=== PATIENT | female | born 1980 | race American Indian/Alaskan Native ===

== ENCOUNTER 2016-12-18 13:38 | Observation (INO) | payer OTHER ==
[2016-12-18] MEDS ORDERED: TYLENOL PO PRN (16:04)
[2016-12-18] MEDS ORDERED: BENADRYL PO PRN (16:07)
[2016-12-18] MEDS ORDERED: BENADRYL IV PRN (16:33)
[2016-12-18] MEDS ORDERED: TYLENOL PO STA (19:22)
[2016-12-18] MEDS ORDERED: BENADRYL PO ONE (19:22)
[2016-12-18] MEDS: NACL 0.9% 500 ML 500 ML IV SCH (22:21)
--- NOTE | 2016-12-19 07:38 | Admit Criteria Form ---
Admission Criteria Documentation: OBSTETRIC AND GYNECOLOGIC DISEASE GRG Clinical Indications for Admission to Inpatient Care (Place 'X' for any and all applicable criteria): Hospital admission is needed for appropriate care of the patient because of 1 or more of the following (1)(2)(3): [ ]I. Hemodynamic instability, as indicated by 1 or more of the following (1)( 2)(3)(4)(5): [ ]a) Vital signs or other findings not as expected for chronic patient condition or baseline [ ]b) Instability indicated by 1 or more of the following: [ ]i) Hypotension [ ]ii) Symptomatic tachycardia unresponsive to treatment (eg, analgesia, fluids, sedation as indicated) [ ]iii) Inadequate perfusion indicated by 1 or more of the following: [ ]A. Lactic acidosis (greater than 2 mmol/ L) [ ]B. New abnormal capillary refill ( greater than 3 seconds) [ ]C. Reduced urine output [ ]D. New altered mental status [ ]iv) Orthostatic vital sign changes unresponsive to treatment (eg, fluids) [ ]v) Multiple IV fluid boluses required to maintain adequate blood pressure or perfusion [ ]vi) IV inotropic or vasopressor medication required to maintain adequate blood pressure or perfusion [ ]II. Obstetric infection requiring hospitalization indicated by 1 or more of the following(13)(14): [ ]a) Chorioamnionitis [ ]b) Endometritis (except mild endometritis) [ ]c) Pelvic abscess [ ]d) Peritonitis [ ]e) Septic pelvic thrombophlebitis [ ]III. Amniotic fluid or pulmonary embolism(4)(5)(6) [ ]IV. Suspected peritonitis or ectopic requiring monitoring beyond scope of 24 hours or observation care(7)(8) [ ]V. compromise requiring hospitalization indicated by ALL of the following(9)(10): [ ]a) compromise indicated by 1 or more of the following(11): [ ]i) Abnormal heart rate monitoring [ ]ii) Abnormal contraction stress test [ ]iii) Abnormal biophysical profile [ ]iv) Abnormal Doppler flow in vessels (ie, Doppler velocimetry) (12) [ ]b) Persistence of compromise indicators during evaluation and observation monitoring [ ]. Ovarian hyperstimulation syndrome requiring hospitalization[A] indicated by ALL of the following(15): [ ]a) Recent ovarian stimulation with gonadotropins, or evidence on ultrasound of spontaneous emergence of large number of ovarian follicles [ ]b) Evidence of severe ovarian hyperstimulation syndrome indicated by 1 or more of the following: [ ]i) Abdominal pain unresponsive to oral therapy [ ]ii) Acute respiratory distress syndrome [ ]iii) Electrolyte imbalance ( eg, hyponatremia, hyperkalemia) [ ]iv) Elevated liver enzymes [ ]v) Evidence of thromboembolism [ ]vi) Hemoconcentration (hematocrit greater than 45 % (0.45)) [ ]vii) Inability to maintain oral intake adequate to prevent hemoconcentration [ ]viii) Marked hypotension from baseline (eg, SBP 20 mmHg below patients usual pressure) [ ]ix) Oliguria or anuria [ ]x) Ovarian torsion [ ]xi) Pleural or pericardial effusion on x-ray or echocardiogram [ ]xii) Rapid increase in serum creatinine to greater than 1.2 mg/dL (106 micromoles/L) or creatinine clearance less than 50 mL/min/1.73m2 (0.84 mL/ sec/1.73m2) [ ]xiii) Ruptured ovarian cyst with hemorrhage [ ]xiv) Severe abdominal pain or peritoneal signs [ ]xv) Tense ascites that cannot be managed with paracentesis in outpatient setting [ ]VII.Pelvic infection requiring hospitalization indicated by 1 or more of the following (16): [ ]a) Outpatient treatment has failed or is not appropriate (eg, inpatient monitoring required) [ ]b) Pelvic abscess [ ]c) Surgical emergency cannot be excluded (eg, rigid abdomen) [ ]d) Vomiting precluding outpatient and observation care management VIII. loss complications requiring inpatient medical treatment indicated by 1 or more of the following (4)(7)(9): [ ]a) Fever [ ]b) Peritonitis [ ]c) Sepsis [ ]d) Severe abdominal pain [ ]IX. or patient requiring monitoring for severe heart failure, pulmonary disease, or other comorbid condition (eg, peripartum cardiomyopathy) (4)(17) [ ]X. patient with rupture of membranes requiring hospitalization indicated by ANY ONE of the following: [ ]a) Chorioamnionitis, cloudy amniotic fluid, or other evidence of infection [ ]b) compromise or other need for monitoring (11) [ ]c) Gestation longer than 23 weeks and ANY ONE of the following: [ ]i) Abnormal (noncephalic) presentation [ ]ii) Inadequate home environment (eg, home too far from hospital, unable to rapidly return to hospital) [ ]d) Temperature greater than 100.4 degrees F (38 degrees C)( oral) [ ]e) Threatened labor requiring monitoring beyond scope (eg, over 24 hours) of observation Care [ ] XI. complications, including severe lacerations, infections, or retained placenta (19) [X ] XII.Uterine bleeding with high-risk features indicated by ANY ONE of the following (4): [ ]a) Active major hemorrhage (eg, hemorrhage) [ ]b) Coagulopathy with active bleeding [ ]c) Gestational trophoblastic disease (eg, molar ) (20 ) [ ]d) (longer than 23 weeks) and ANY ONE of the following: [ ]i) Pain [ ]ii) Placental abruption, known or suspected [ ]iii) Placenta accrete, known or suspected(21) [ ]iv) Placenta previa, known or suspected [ ]v) Vasa previa [ X]e) Severe anemia [ ]XIII. Obstetric or Gynecologic Disease, condition or symptom for which ANY ONE of the following: [ ]a) Emergency and observation care have failed or are not considered appropriate ( Also use General Criteria: Observation Care Criteria as appropriate) [ ]b) Presence of a General Admission Criteria or Pediatric General Admission Criteria The original [facility] [employer] content created by [facility] has been revised. The portions of the content which have been revised are identified through the use of italic text or in bold, and [facility] has neither reviewed nor approved the modified material.All other unmodified content is copyright [facility]. Please see references footnoted in the original [facility] edition 2016
[2016-12-19] MEDS: NACL 0.9% 500 ML 500 ML IV SCH (10:10)
[2016-12-19 12:53] VITALS: BP 117/64
== END 2016-12-19 15:43 | disposition home or self-care (01) ==
LOC: UNDOADMIN 13:38 → 3A 13:38 → EDSTATUS 15:05 → 3A 18:53
PROVIDERS: ADMIT Obstetrics & Gynecology Gynecology; ATTEND Obstetrics & Gynecology Gynecology
DX: D50.0 Iron deficiency anemia secondary to blood loss (chronic) (principal); N93.9 Abnormal uterine and vaginal bleeding, unspecified; N92.0 Excessive and frequent menstruation with regular cycle; N94.6 Dysmenorrhea, unspecified; N76.0 Acute vaginitis; Z83.3 Family history of diabetes mellitus
CPT/HCPCS: 36415; 36430; 85014; 85018; 86850; 86900; 86901; 86920; 96360; 96361; G0378; G0379; J7040; P9016

== ENCOUNTER 2016-12-22 10:51 | Observation (INO) | payer OTHER ==
[2016-12-17 12:48] LABS: Bilirubin,Urine NEG (Negative); Blood,Urine NEG (Negative); Ketones,Urine NEG (Negative); Leukocyte Esterase,Urine NEG (Negative); Mucus,Urine FEW /HPF; Nitrite,Urine NEG (Negative); Protein,Urine <15 mg/dL mg/dL (Negative); Urobilinogen,Urine < 2.0 mg/dL (<2.0); WBC,Urine < 1.0 /HPF (0.0-6.0)
[2016-12-17 12:58] LABS: Basophils % (Auto) 1.3 % (0.0-1.8); Eosinophils % (Auto) 1.3 % (0.0-4.3); Hematocrit 23.4 % (30.3-42.9); Hemoglobin 6.8 gm/dl (10.1-14.3); Mean Corpuscular HGB Conc 29 % (30-34); Platelet Count 300 K/mm3 (140-440); Red Blood Count 3.44 M/mm3 (3.65-5.03); White Blood Count 7.3 K/mm3 (4.5-11.0)
[2016-12-17 12:59] LABS: Mean Corpuscular Volume 68 fl (79-97)
[2016-12-17 13:00] LABS: Mean Corpuscular Hemoglobin 20 pg (28-32); Red Cell Distribution Width 22.8 % (13.2-15.2)
[2016-12-17 14:46] LABS: Alanine Aminotransferase 12 units/L (7-56); Albumin 3.7 g/dL (3.9-5); Albumin/Globulin Ratio 1.2 %; Alkaline Phosphatase 46 units/L (35-129); Anion Gap 16 mmol/L; Blood Urea Nitrogen 7 mg/dL (7-17); Calcium 8.8 mg/dL (8.4-10.2); Carbon Dioxide 25 mmol/L (22-30); Chloride 103.1 mmol/L (98-107); Glucose 81 mg/dL (65-100); Potassium 4.1 mmol/L (3.6-5.0); Sodium 140 mmol/L (137-145); Total Protein 6.7 g/dL (6.3-8.2)
[2016-12-22] MEDS ORDERED: SUBLIMAZE IV ONE (11:38)
--- NOTE | 2016-12-22 11:38 | Anesthesia Day of Surgery ---
Anesthesia Day of Surgery - Day of Surgery Patient Examined: Yes Patient H&P Reviewed: Yes Patient is NPO: Yes
--- NOTE | 2016-12-22 11:38 | Anesthesia Consultation ---
Anesthesia Consult and Med Hx Date of service: 12/22/16 - Airway Anesthetic Teeth Evaluation: Good ROM Head & Neck: Adequate Mental/Hyoid Distance: Adequate Mallampati Class: Class I Intubation Access Assessment: Good - Pulmonary Exam CTA: Yes - Cardiac Exam Cardiac Exam: RRR - Pre-Operative Health Status ASA Pre-Surgery Classification: ASA2 Proposed Anesthetic Plan: General - Pulmonary Hx Smoking: Yes (occas) - Central Nervous System Hx Psychiatric Problems: No - Hematic Hx Anemia: Yes - Other Systems Hx Alcohol Use: Yes (daily Mimosa) Hx Cancer: No
[2016-12-22] MEDS ORDERED: NEURONTIN PO NR (12:00)
[2016-12-22] MEDS ORDERED: VERSED IV NR (12:00)
[2016-12-22] MEDS ORDERED: NACL 0.9% 1000 ML 1,000 ML IV SCH (12:00)
[2016-12-22] MEDS ORDERED: PEPCID PO NR (12:00)
[2016-12-22] MEDS ORDERED: DECADRON ONE ×2 (12:20→12:37)
[2016-12-22] MEDS ORDERED: MARCAINE-EPI/PF 0.25%-1:200,000 INFILTRATI ONE ×2 (12:20→12:25)
[2016-12-22] MEDS ORDERED: NEOSPORIN GU IR ONE ×2 (12:25→14:39)
[2016-12-22] MEDS ORDERED: NACL 0.9% 0 ML ONE (12:25)
[2016-12-22] MEDS ORDERED: Vasostrict ONE (12:26)
[2016-12-22 12:29] LABS: Basophils % (Auto) 1.2 % (0.0-1.8); Eosinophils % (Auto) 1.4 % (0.0-4.3); Mean Corpuscular HGB Conc 30 % (30-34); Mean Corpuscular Volume 72 fl (79-97); Platelet Count 325 K/mm3 (140-440); Red Blood Count 4.88 M/mm3 (3.65-5.03); White Blood Count 8.7 K/mm3 (4.5-11.0)
[2016-12-22 12:34] LABS: Hemoglobin 10.6 gm/dl (10.1-14.3); Mean Corpuscular Hemoglobin 22 pg (28-32)
[2016-12-22] MEDS ORDERED: DIPRIVAN 10 MG/ML IV ONE (12:37)
[2016-12-22] MEDS ORDERED: DILAUDID ONE (12:37)
[2016-12-22] MEDS ORDERED: XYLOCAINE MPF 2% ONE (12:37)
[2016-12-22] MEDS ORDERED: ZEMURON IV ONE (12:37)
[2016-12-22] MEDS ORDERED: ZOFRAN ONE (12:37)
[2016-12-22] MEDS ORDERED: ANCEF/STERILE WATER 2 GM/20 ML IV NR (12:57)
[2016-12-22] MEDS ORDERED: ACD-A 500 ML IV ONE (13:17)
[2016-12-22] MEDS ORDERED: THROMBIN (BOVINE) TP ONE ×2 (13:18→16:41)
[2016-12-22] MEDS ORDERED: CALCIUM CHLORIDE IV ONE ×2 (13:20→16:41)
[2016-12-22] MEDS ORDERED: NACL P/F VIAL (10 ML) 10 ML ONE ×2 (13:34)
[2016-12-22] MEDS ORDERED: FLAGYL 500 MG/100 ML 500 MG/100 ML BAG IV ONE (14:02)
[2016-12-22] MEDS ORDERED: Vasostrict IM ONE (14:40)
[2016-12-22] MEDS ORDERED: NACL 0.9% IR ONE (14:40)
[2016-12-22] MEDS ORDERED: NACL P/F VIAL (10 ML) INFILTRATI ONE (14:41)
[2016-12-22] MEDS ORDERED: ACD-A IV ONE (16:41)
[2016-12-22] MEDS ORDERED: ANCEF ONE (18:45)
--- NOTE | 2016-12-22 18:52 | Short Stay Summary ---
Short Stay Documentation Date of service: 12/22/16 - History H&P: obtained from office - Allergies and Medications Current Medications: Allergies Sulfa (Sulfonamide Antibiotics) Allergy (Verified 12/22/16 12:23) Hives LATEX Adverse Reaction (Uncoded 12/22/16 12:04) Itching Home Medications Medication Instructions Recorded Confirmed Last Taken Type HYDROcodone/APAP 10-325 [[place] 1 each PO Q6HR PRN 12/15/16 12/18/16 Unknown History 10/325] Active Medications Cefazolin Sodium (Ancef/Sterile Water 2 Gm/20 Ml) 2 gm IV PREOP NR Stop: 12/22/16 23:59 Famotidine (Pepcid) 20 mg PO PREOP NR Stop: 12/22/16 23:00 Last Admin: 12/22/16 12:24 Dose: 20 mg Gabapentin (Neurontin) 300 mg PO PREOP NR Stop: 12/22/16 23:00 Last Admin: 12/22/16 12:24 Dose: 300 mg Sodium Chloride (Nacl 0.9% 1000 Ml) 1,000 mls @ 100 mls/hr IV DIRECT MACY Last Admin: 12/22/16 12:24 Dose: 100 mls/hr Midazolam HCl (Versed) 2 mg IV PREOP NR Stop: 12/22/16 23:59 Last Admin: 12/22/16 12:31 Dose: 2 mg - Brief post op/procedure progress note Date of procedure: 12/22/16 Pre-op diagnosis: menorrhagia, dysmenorrhea, metrorhagia6.9 cm uterine fibroid Post-op diagnosis: other (menorrhagia, dysmenorrhea, metrorrhagia, adenomyosis, fibroid) Procedure: EUA, laparoscopic, robot-assisted partial resection of uterine fibroid/adenoma Anesthesia: GETA Findings: 9 cm (boggy) uterus with 6.6 cm myometrial mass and findings c/w extensive adenomyosis, normal appearing appendix, normal appearing bilateral ovaries Surgeon: BEN OCHOA Railway Switchman: KATHERYN MULLINS Estimated blood loss: other (425 ml) Pathology: none (leiomyoma and adenomyosis on frozen section) Specimen disposition: to lab Condition: stable - Disposition Condition at discharge: Good Short Stay Discharge Plan Follow up with: PRIMARY CARE,MD [Primary Care Provider] - 7 Days
[2016-12-22] MEDS ORDERED: TORADOL ONE (19:00)
[2016-12-22] MEDS ORDERED: MILK OF MAGNESIA PO PRN (19:02)
[2016-12-22] MEDS ORDERED: MORPHINE IV PRN (19:02)
[2016-12-22] MEDS ORDERED: SODIUM CHLORIDE FLUSH SYRINGE 10 ML IV PRN (19:02)
[2016-12-22] MEDS ORDERED: DULCOLAX PR PRN (19:02)
[2016-12-22] MEDS ORDERED: PERCOCET 5/325 PO PRN (19:02)
[2016-12-22] MEDS ORDERED: ZOFRAN PO PRN (19:02)
[2016-12-22] MEDS ORDERED: TYLENOL PO PRN (19:02)
[2016-12-22] MEDS ORDERED: NARCAN 0.4 MG/1 ML IV PRN (19:02)
[2016-12-22] MEDS ORDERED: ZOFRAN IV PRN ×2 (19:02→19:09)
[2016-12-22] MEDS: DILAUDID IV PRN ×4 (19:11→20:33)
[2016-12-22] MEDS ORDERED: D5W/0.45% NACL/KCL 20 MEQ 20 MEQ/1,000 ML BAG IV SCH (20:00)
[2016-12-22] MEDS: ANCEF/NS 1 GM/50 ML 1 GM/50 ML BAG IV SCH (21:45)
[2016-12-22] MEDS: TORADOL IV SCH (22:00)
[2016-12-22] MEDS: MORPHINE IV PRN (23:43)
--- NOTE | 2016-12-23 03:19 | Operative Report ---
PREOPERATIVE DIAGNOSES: 1. Menorrhagia. 2. Dysmenorrhea. 3. Uterine fibroid. POSTOPERATIVE DIAGNOSES: 1. Menorrhagia. 2. Dysmenorrhea. 3. Fibroids. 4. Adenomyosis. PROCEDURE: EUA, laparoscopic robot assisted, partial resection of fibroid and adenomyoma. ANESTHESIA: General. SURGEON: Ronda Combs MD CHANNEL MARKETING PROGRAM MANAGER: first Laron assist. ESTIMATED BLOOD LOSS: 425 mL. VOLUME IN: 1300 mL. Please make a note that the patient received 125 mL of packed red blood cells via Cell Saver. SPECIMEN: Uterine mass (determined to be fibroid and adenomyosis on frozen section). INDICATIONS: The patient same is a 36-year-old -[place] female with a chief complaint of menorrhagia, dysmenorrhea and metrorrhagia. She had pelvic ultrasound in September 2016 that showed a uterus measuring 9.7 x 6.6 x 8.6 cm with a large myometrial mass measuring 5.8 x 4.2 x 5.2 cm. The endometrium was not visualized. A pelvic MRI from 11/18/2016 showed a large submucosal uterine fibroid measuring 6.8 x 4.8 x 4.3 cm arising from the posterior aspect of the body and fundal region of the uterus and extending into the endometrium and displacing it anteriorly. She desires future childbearing. Today, she is being brought to the operating room for EUA, laparoscopic assisted myomectomy, possible cystoscopy, using a morcellator. DESCRIPTION OF PROCEDURE: The patient brought to the operating room where general anesthesia was administered without difficulty. She was prepped and draped in usual sterile fashion, positioned in the dorsal lithotomy position. Zambrano catheter placed in the bladder. Uterus sounded to 9 cm. A large secure device placed in the uterus to provide a means to manipulate the uterus during surgery. Attention was turned to the abdomen where a 5 mm optical trocar was placed in the left upper quadrant subcostal margin midclavicular line. A 12 mm trocar was placed approximately 3 to 4 fingerbreadths superior to the umbilicus in the midline. An 8 and a 12 mm trocar was placed 8 to 10 cm to the right of the midline. Two 8 mm trocars were placed 8 to 10 cm to the left of the midline. Another 5 mm trocar was placed between the midline and the right superior most trocars. The bowel was elevated out of the pelvis into the upper abdomen. The robot was properly docked inside the abdomen and pelvis and examination under anesthesia was performed with the findings noted above. Additionally, at this time, the patient was noted to have an enlarged very boggy appearing and feeling uterus. Dilute vasopressin was injected along the posterior wall of the uterus. An incision was made in the same area using the scissors. The mass was seen; however, it was very soft and as we began to dissect the mass from its base, the mass appeared very consistent with adenomyosis. We continued and the endometrial cavity was entered. A large piece of the mass was sent to the lab for frozen section just to confirm the diagnosis with the findings as were noted above. Following this, the uterus was closed in multiple layers in the following fashion: The endometrium was closed using 3-0 V-Loc suture in a running fashion. The myometrium was closed in three separate layers using 0 V-Loc suture. Then, the serosal layer of the uterus was closed using a 3-0 V-Loc suture in a baseball stitch fashion. Hemostasis was visualized. Following this, PRP and PPP were applied to the uterus over the incision generously. Following this, three sheets of Interceed were also applied to decrease the risk of future uterine adhesions. All instruments were then removed from the abdomen and pelvis. Counts were correct x 2. The patient tolerated the procedure well and was taken to recovery room awake in stable condition. JOB# [id number] JOSE CARLOS/SAMMY
[2016-12-23] MEDS: TORADOL IV SCH ×2 (03:20→11:31)
[2016-12-23] MEDS: ANCEF/NS 1 GM/50 ML 1 GM/50 ML BAG IV SCH (05:25)
[2016-12-23] MEDS: MORPHINE IV PRN (05:35)
[2016-12-23] MEDS ORDERED: ANCEF/NS 1 GM/50 ML 1 GM/50 ML BAG IV SCH (06:00)
--- NOTE | 2016-12-23 07:00 | Admit Criteria Form ---
Admission Criteria Documentation: AMBULATORY SURGERY EXCEPTION CRITERIA Ambulatory Surgery Exception Criteria ( Place 'X' for any and all applicable criteria): Surgery or procedure performed on ambulatory basis may require inpatient stay for[A] ANY ONE of the following(1)(2)(3)(4)(5)(6)(7)(8)(9): [X] I. A preoperative situation, condition, or finding that warrants inpatient stay as indicated by ANY ONE of the following: [X] a) Inpatient care needed because of severity of a disease or condition rather than the surgery (eg, severe cardiac or respiratory disease, severe infection) (15) (16 ) (17) (18) [] b) Emergent procedure (eg, angioplasty for acute ischemia)(19) [] c) Complex surgical approach or situation as indicated by ANY ONE of the following(3): [] i) Open approach needed instead of usual endoscopic, transcatheter, or other less invasive procedure [] ii) Difficult approach because of previous operation [] iii) Airway monitoring required after open neck procedures(20)(21) [] iv) Large mass requiring unusually extensive dissection [] v) Additional complicating feature requiring inpatient care (eg, drain management)(22(23): [] d) Major surgery in a pt with high anesthetic risk as indicated by ANY ONE of the following (2)(3)(5)(7)(8): [] i) ASA risk class III or higher (severe systemic disease impairing function) [D] [] ii) Advanced age (eg, older than 85 years)(14)(24) [] iii) Symptomatic heart failure(25) [] iv) Symptomatic asthma or COPD(8)(21) [] v) Morbid obesity with hemodynamic or respiratory problems(20)( 21)(26)(27) [] vi) Obstructive sleep apnea(20)(21) [] vii) Former premature infants who are younger than 60 weeks [] viii) High risk for severe postoperative abnormalities (eg, severe postoperative hypocalcemia after parathyroidectomy for severe hyperparathyroidism)(27)( 28) [] ix) Unstable angina(25) [] e) Drug-related risk requiring inpatient stay as indicated by ANY ONE of the following(5)(10)(14)(32)(33) [] i) Procedure requires discontinuing drugs or other therapy (eg , antiarrhythmic medication, antiseizure medication), which necessitates inpatient observation or treatment.(18)(31) [] ii) Major surgery and high risk drug use as indicated by ANY ONE of the following: [] 1) Active abuse of cocaine or similar drug [] 2) Monoamine oxidase inhibitor use [] 3) Other drug identified as posing risk [] f) Inadequate outpatient care situation as indicated by ANY ONE of the following(5)(10)(14)(32)(33) [] i) Patient lives remote from medical facility and procedure has urgent complication potential, and temporary nearby residence cannot be arranged [] ii) Patient will have postprocedure incapacitation and inadequate assistance at home, or alternative level of care cannot be arranged. [] iii) Patient will have long general anesthesia or procedure side effect resolution time, and competent person to stay with patient on first postoperative night at home or alternative level of care cannot be arranged. []iv) Other inadequate outpatient situation that cannot be handled by other means [] II. A perioperative event, condition, or finding that warrants inpatient stay as indicated by ANY ONE of the following (1)(2)(3): [] a) Inadequate physiologic recovery: cardiovascular, respiratory, or hemodynamic status not normal or near preoperative baseline(18) [] b) Hemodynamic instability [] c) Patient not alert with near normal or baseline mental status [] d) Temperature not normal or as expected and not appropriate for outpatient treatment of condition [] e) Ambulatory or appropriate activity level status not yet achieved post procedure [E](34)(35)(36) [] f) Operative site not appropriate (eg, unexpected or excessive drainage or bleeding) [] g) Postoperative effects not resolved or adequately managed (eg, significant pain or vomiting not appropriate for outpatient or next level of care)(10)(12) [] h) Complicating features requiring inpatient care as indicated by ANY ONE of the following(37): [] i) Severe complications of procedure (eg, bowel injury, airway compromise, vascular injury,severe hemorrhage) [] ii) Extensive (eg, dissection far beyond usual scope of procedure ) or prolonged (eg, 120 minutes beyond usual) surgery needed requiring inpatient postoperative care [] iii) Conversion to an open or complex procedure that requires inpatient care (eg, open vs laparoscopic cholecystectomy, abdominal vs vaginal hysterectomy)(38) [] iv) Comorbid condition or test result identified during or post procedure that requires inpatient care (7) [] v) Malignant hyperthermia(30) [] vi) Other complicating feature requiring inpatient care(22)(23) Inpatient stay may be needed until ALL of the following are present (1)(2)(3)(4) (5)(6)(10)(14)(33)(40): []a) Physiologic recovery: cardiovascular, respiratory, and hemodynamic status normal or near preoperative baseline []b) Hemodynamic stability []c) Patient alert, with near normal or baseline mental status []d) Temperature appropriate: patient afebrile or temperature appropriate for outpt treatment of condition []e) Activity level appropriate: ambulatory or appropriate activity level post procedure []f) Operative site appropriate as indicated by ALL of the following: []i) Site dry or with expected drainage []ii) Any blood noted is as expected for procedure. []g) Postoperative effects resolved or managed as indicated by ALL of the following: []i) Pain management appropriate for outpatient (or next level of) care(10) []ii) Minimal nausea and vomiting: if present, successfully treated with oral medication(12) []iii) Headache, dizziness, or drowsiness (if present) are mild. []h) Voiding status acceptable as indicated by ANY ONE of the following: []i) Voiding spontaneously []ii) No voiding but instructions given for follow-up in 6 to 8 hours []iii) Urinary catheter in place, and instructions given for follow-up []i) Complicating features requiring inpatient care manageable at a lower level of care(37) []j) Comorbid conditions manageable at a lower level of care(37) The original [employer] content created by [employer] has been revised. The portions of the content which have been revised are identified through the use of italic text or in bold, and [employer] has neither reviewed nor approved the modified material. All other unmodified content is copyright [employer]. Please see references footnoted in the original [employer] edition 2016
[2016-12-23 07:51] VITALS: BP 128/79
[2016-12-23 07:57] LABS: Anion Gap 16 mmol/L; BUN/Creatinine Ratio 8.57; Blood Urea Nitrogen 6 mg/dL (7-17); Calcium 8.4 mg/dL (8.4-10.2); Carbon Dioxide 24 mmol/L (22-30); Chloride 101.9 mmol/L (98-107); Glucose 105 mg/dL (65-100); Potassium 4.1 mmol/L (3.6-5.0); Sodium 138 mmol/L (137-145)
[2016-12-23 08:11] LABS: Hematocrit 32.2 % (30.3-42.9); Hemoglobin 9.7 gm/dl (10.1-14.3)
[2016-12-23] MEDS ORDERED: PROTONIX IV SCH (10:00)
[2016-12-23] MEDS ORDERED: PEPCID IV SCH (10:00)
== END 2016-12-23 04:20 | disposition home or self-care (01) ==
LOC: OR 10:51 → 2B-SURG 19:02
PROVIDERS: ADMIT Obstetrics & Gynecology Gynecology; ATTEND Obstetrics & Gynecology Gynecology
DX: N92.0 Excessive and frequent menstruation with regular cycle (principal); D25.0 Submucous leiomyoma of uterus; N93.9 Abnormal uterine and vaginal bleeding, unspecified; N94.6 Dysmenorrhea, unspecified; D26.9 Other benign neoplasm of uterus, unspecified; Z87.891 Personal history of nicotine dependence
CPT/HCPCS: 36415; 58545; 64450; 80048; 80053; 81001; 84703; 85014; 85018; 85025; 86850; 86900; 86901; 86920; 87086; 88307; 88331; 96374; 96375; 96376; C1765; C1782; G0378; J0690; J1100; J1170; J1885; J2250; J2270; J2405; J2704; J3010; J7030; C9113